=== PATIENT | female | born 1960 | race Caucasian/White ===

== ENCOUNTER → 2017-02-05 | Outpatient (CLI) | payer BC, OTHER | LOC: RAD 15:01 | PROVIDERS: ATTEND Obstetrics & Gynecology | DX: Z12.31 Encounter for screening mammogram for malignant neoplasm of breast (principal) | CPT/HCPCS: 77067 ==

== ENCOUNTER 2017-02-16 05:46 | Outpatient (CLI) | payer BC, OTHER ==
[~2017-02-16] VITALS: Ht 170.2 cm; Wt 71.7 kg
[2017-02-16] MEDS ORDERED: LOVA20TA2 PO (10:57)
== END 2017-02-16 11:01 ==
LOC: PREOP 05:46
PROVIDERS: ATTEND Internal Medicine
DX: Z01.818 Encounter for other preprocedural examination (principal); Z12.11 Encounter for screening for malignant neoplasm of colon

== ENCOUNTER 2017-02-23 07:27 | Day surgery (SDC) | payer BC, OTHER ==
[~2017-02-23] VITALS: Ht 170.2 cm; Wt 71.7 kg
[~2017-02-23 07:27] MED LIST: LOVA20TA2 PO
[2017-02-23] MEDS ORDERED: 1/2 NS IV SOLUTION 1,000 ML IV ONE (07:33)
[2017-02-23] MEDS ORDERED: 1/2 NS IV SOLUTION 1,000 ML IV STA (07:35)
--- NOTE | 2017-02-23 07:40 | Pre-Op Note & Conscious Sedat ---
Pre-Operative Progress Note H&P Reviewed The H&P was reviewed, patient examined and no changes noted. Date H&P Reviewed: Feb 23, 2017 Time H&P Reviewed: 07:39 Conscious Sedation Pre-Proced ASA Class: 2 Airway Mallampati Classification: (asa'[place] appropriate class) I. II. III, IV Lungs Heart ASA score ASA 1: a normal healthy patient ASA 2: a patient with a mild systemic disease (mid diabetes, controlled hypertension, obesity ASA 3: a patient with a severe systemic disease that limits activity (angina , COPD, prior Myocardial infarction) ASA 4: a patient with an incapacitating disease that is a constant threat to life (CHF, renal failure) ASA 5: a moribund patient not expected to survive 24 hrs. (ruptured aneurysm) ASA 6: a declared brain patient whose organs are being harvested. For emergent operations, add the letter E after the classification Grade 2 Sedation Plan: Analgesia, Amnesia, Plan communicated to team members, Discussed options with patient/fam, Discussed risks with patient/fam Note The patient is an appropriate candidate to undergo the planned procedure, sedation, and anesthesia. The patient immediately re-assessed prior to indication. MADELINE BOLES MD Feb 23, 2017 07:40
[2017-02-23] MEDS ORDERED: LIDOCAINE JELLY 2% (XYLOCAINE) 5 ML TUBE MM PRN (07:45)
[2017-02-23 07:55] VITALS: BP 117/57
[2017-02-23] MEDS ORDERED: fentaNYL INJECTION 100 MCG/2 ML AMP ONE (08:17)
[2017-02-23] MEDS ORDERED: LIDOCAINE JELLY 2% (XYLOCAINE) 5 ML TUBE ONE (08:17)
[2017-02-23] MEDS ORDERED: MIDAZOLAM 2 MG/2 ML (VERSED) VIAL ONE ×2 (08:17→08:31)
[2017-02-23] MEDS: fentaNYL INJECTION 100 MCG/2 ML AMP IVP PRN ×2 (08:30→08:34)
[2017-02-23] MEDS: MIDAZOLAM 2 MG/2 ML (VERSED) VIAL IVP PRN ×2 (08:31→08:37)
[2017-02-23 09:20] VITALS: BP 105/67
[2017-02-23 09:50] VITALS: BP 110/77
[2017-02-23 10:01] VITALS: BP 110/77
--- NOTE | 2017-02-23 15:03 | OPERATIVE REPORT ---
DATE OF SERVICE: REPORT TITLE: Colonoscopy Summary. INDICATION FOR THE PROCEDURE: Screening colonoscopy. DESCRIPTION OF PROCEDURE: The patient was placed in the left lateral decubitus position. Prior to undergoing colonoscopy, digital rectal evaluation was performed. Anal sphincter tone was normal and the perianal reflex is intact. No abnormalities were noted on digital inspection of the anal canal or distal rectal vault. The colonoscope was then inserted into the rectum under direct visualization advanced to the cecum. The cecum was identified by identification of the ileocecal valve and cecal strap. Photographic documentation was obtained. Careful inspection was made as the colonoscope was withdrawn. The patient tolerated the procedure well. FINDINGS: There are no evidence for internal or external hemorrhoids. The rectum was unremarkable. Present in the distal sigmoid colon was a diminutive polyp that was with hyperplastic features. Similar polyp was noted in the proximal sigmoid colon. It too was biopsied and ablated with no subsequent blood loss. Several small sigmoid diverticulum were present without evidence for diverticulitis. The descending colon, splenic flexure, transverse colon, ascending colon and cecum were unremarkable. ASSESSMENT: Diminutive polyps were removed from the sigmoid colon via hot forceps. Both has hyperplastic features. Mild diverticular disease confined to the sigmoid colon was present as well. No other abnormalities were noted on today's procedure. As long as there are no surprises on histopathology report, would advocate consideration for repeat screening colonoscopy in 10 years. The patient is not aware of any family history for colon cancer. Job ID: [id number] DocumentID: [id number] Dictated Date: 02/23/2017 11:47:09 Tray Delivery Aide Date: 02/23/2017 15:02:16 Dictated By: MADELINE BOLES MD MTDD
--- NOTE | 2017-03-01 10:59 | HISTORY AND PHYSICAL ---
COLONOSCOPY HISTORY AND PHYSICAL HISTORY OF PRESENT ILLNESS: The patient is a 56-year-old white female referred by Dr. Brower for her first screening colonoscopy. She reports that out of 8 siblings, she knows of 2 that have had colon polyps. Her sister had several polyps removed on a colonoscopy around the age 52 and her brother had some polyps removed in his late 40s. She is not aware of any family history for colon cancer or inflammatory bowel disease. She denies bright red blood per rectum, melena, abdominal pain or bowel habit change. PAST MEDICAL HISTORY: Significant for hyperlipidemia with no known history of vascular disease. PAST SURGICAL HISTORY: Distant past history of tonsillectomy. 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 She has no past smoking history and rare alcohol intake. She is 2, para 2. PHYSICAL EXAMINATION: GENERAL: Reveals a well-kempt articulate white female in no acute distress. VITAL SIGNS: Blood pressure 130/80. CHEST: Clear. CARDIOVASCULAR: Reveals regular rate and rhythm without murmur, S3 or S4. HEENT: Oral cavity was unremarkable. Pharynx reveals no evidence for exudate or erythema. She is a Mallampati class II configuration. ABDOMEN: Soft, supple without mass, organomegaly or tenderness. Bowel sounds are positive. No bruits are noted. EXTREMITIES: Reveal no cyanosis, clubbing or edema. ASSESSMENT/PLAN: The patient is set up for screening colonoscopy on 02/23/2017. Prep instructions with Suprep were given and questions were answered. I thank you for the referral of this pleasant lady. Job ID: [id number] DocumentID: [id number] Dictated Date: 02/14/2017 19:48:39 Client Delivery Specialist Date: 02/14/2017 21:35:16 Dictated By: MADELINE BOLES MD <Dictated by MADELINE BOLES MD> <Electronically signed by MADELINE BOLES MD> 02/16/17 [id number]
== END 2017-02-23 10:00 | disposition home or self-care (01) ==
LOC: ENDO 07:27
PROVIDERS: ATTEND Internal Medicine
DX: Z12.11 Encounter for screening for malignant neoplasm of colon (principal); K63.5 Polyp of colon; K57.30 Diverticulosis of large intestine without perforation or abscess without bleeding; E78.5 Hyperlipidemia, unspecified; Z83.71 Family history of colonic polyps

== ENCOUNTER → 2018-03-20 | Outpatient (CLI) | payer BC, OTHER ==
--- NOTE | 2018-03-20 10:40 | Diagnostic Imaging Report ---
Indication: Routine screening. Comparison is made with prior mammogram from 02/05/2017 and 03/22/2015. 2-D and 3-D bilateral screening mammography was performed with CAD. Both breasts are heterogeneously dense, limiting the sensitivity of mammography. No mass or malignant appearing microcalcifications are seen. The axillae are unremarkable. Impression: BI-RADS category one No mammographic features suspicious for malignancy are identified. Dictated by: Dictated on workstation # [id number]
== END ==
LOC: RAD 07:50
PROVIDERS: ATTEND Obstetrics & Gynecology
DX: Z12.31 Encounter for screening mammogram for malignant neoplasm of breast (principal)
CPT/HCPCS: 77067

== ENCOUNTER → 2019-03-24 | Outpatient (CLI) | payer BC, OTHER ==
--- NOTE | 2019-03-25 08:29 | Diagnostic Imaging Report ---
INDICATION: Screening The current study was also evaluated with a Computer Aided Detection (CAD) system. 3-D Tomographic imaging was also performed. Comparison made with prior examination 03/20/2018, 02/05/2017 and 03/22/2015. FINDINGS: There are scattered fibroglandular densities bilaterally. Few benign type calcifications. There is no dominant mass, spiculated lesion or suspicious calcification identified. Skin, nipples and axilla are unremarkable. IMPRESSION: Category 2 benign. ACR BI-RADS Category 2: Benign findings. Result letter will be mailed to the patient. Note: At least 10% of breast cancer is not imaged by mammography. Dictated by: Dictated on workstation # [id number]
== END ==
LOC: RAD 15:05
PROVIDERS: ATTEND Obstetrics & Gynecology
DX: Z12.31 Encounter for screening mammogram for malignant neoplasm of breast (principal)
CPT/HCPCS: 77067

== ENCOUNTER → 2021-01-11 | Outpatient (CLI) | payer OTHER ==
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
== END ==
LOC: RAD 07:33
PROVIDERS: ATTEND Internal Medicine
DX: S20.211A Contusion of right front wall of thorax, initial encounter (principal); V19.9XXA Pedal cyclist (driver) (passenger) injured in unspecified traffic accident, initial encounter
CPT/HCPCS: 71101

== ENCOUNTER → 2021-02-08 | Outpatient (CLI) | payer OTHER ==
--- NOTE | 2021-02-08 12:30 | Diagnostic Imaging Report ---
Indication: Routine screening. Comparison is made with prior mammogram 03/24/2019 and 03/20/2018. 2-D and 3-D bilateral screening mammography was performed with CAD. Both breasts are heterogeneously dense, limiting the sensitivity of mammography. The parenchymal pattern is stable. No mass or malignant-appearing microcalcifications are seen. Axillae are unremarkable. IMPRESSION: BI-RADS Category 1 No mammographic features suspicious for malignancy are identified. ACR BI-RADS Category 1: Negative. Result letter will be mailed to the patient. Note: At least 10% of breast cancer is not imaged by mammography. Dictated by: Dictated on workstation # [id number]
== END ==
LOC: RAD 07:24
PROVIDERS: ATTEND Internal Medicine
DX: Z12.31 Encounter for screening mammogram for malignant neoplasm of breast (principal)
CPT/HCPCS: 77063; 77067

== ENCOUNTER → 2022-02-10 | Outpatient (CLI) | payer OTHER ==
--- NOTE | 2022-02-10 14:45 | Diagnostic Imaging Report ---
INDICATION: Routine screening. Comparison is made with prior mammograms from 02/08/2021 and 03/24/2019. 2-D and 3-D bilateral screening mammography was performed with CAD. Both breasts are heterogeneously dense, limiting the sensitivity of mammography. A circumscribed density has developed in the central left breast best seen on the CC view. This is not seen on prior study and additional views are recommended. No definite correlate is identified on the MLO view. Right breast is unremarkable. No malignant-appearing microcalcifications are seen. Axillae are unremarkable. IMPRESSION: Left breast density. Additional views are recommended for further evaluation. BI-RADS 0. ACR BI-RADS Category 0: Incomplete. (Needs additional imaging evaluation). Result letter will be mailed to the patient. Note: At least 10% of breast cancer is not imaged by mammography. Dictated by: Dictated on workstation # [id number]
== END ==
LOC: RAD 10:15
PROVIDERS: ATTEND Nurse Practitioner Family
DX: Z12.31 Encounter for screening mammogram for malignant neoplasm of breast (principal)
CPT/HCPCS: 77063; 77067

== ENCOUNTER → 2022-02-23 | Outpatient (CLI) | payer OTHER ==
--- NOTE | 2022-02-23 10:16 | Diagnostic Imaging Report ---
Indication: Left breast density. Patient presents for additional views. Correlation is made with screening study from 02/10/2022. Unilateral left 2-D and 3-D diagnostic mammography was performed. This includes spot compression CC, rolled CC as well as conventional 90 degree lateral views. Additional views show a persistent nodular density in the central left breast approximately 5 cm deep to the nipple. No other abnormalities are seen. IMPRESSION: BI-RADS 0 Persistent density in the central left breast. Further evaluation with ultrasound is recommended and will be performed today. ACR BI-RADS Category 0: Incomplete. (Needs additional imaging evaluation). Result letter will be mailed to the patient. Note: At least 10% of breast cancer is not imaged by mammography. Dictated by: Dictated on workstation # [id number]
--- NOTE | 2022-02-23 12:18 | Diagnostic Imaging Report ---
Indication: Left breast density. Correlation is made with diagnostic mammogram earlier the same day and screening mammogram from 02/10/2022. Sonographic interrogation central left breast does show a simple cyst retroareolar region measuring approximately 5 mm x 4 mm x 5 mm, likely accounting for the mammographic density. No solid masses are detected. IMPRESSION: BI-RADS Category 2 Small simple cyst retroareolar left breast, likely accounting for the mammographic density. Patient may return to routine annual screening mammography. ACR BI-RADS Category 2: Benign findings. Result letter will be mailed to the patient. Note: At least 10% of breast cancer is not imaged by mammography. Dictated by: Dictated on workstation # [id number]
== END ==
LOC: RAD 08:30
PROVIDERS: ATTEND Nurse Practitioner Family
DX: N60.02 Solitary cyst of left breast (principal)
CPT/HCPCS: 76642; 77065; G0279

== ENCOUNTER → 2022-05-17 | Outpatient (CLI) | payer OTHER ==
--- NOTE | 2022-05-17 10:30 | Diagnostic Imaging Report ---
CLINICAL INDICATIONS: Patient states she has years of wear and tear on her back. Patient has low back pain and bilateral leg pain. EXAM: MRI of the lumbar spine performed without IV contrast. Sequences include sagittal T2, sagittal T1, sagittal T2 fat-sat, and axial T2. COMPARISON: None. FINDINGS: There is no acute lumbar spine fracture or dislocation. 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 There are small spurs involving the lumbar spine. There is no significant paraspinal soft tissue abnormality. The visualized portions of the distal thoracic spinal cord, conus medullaris, and cauda equina nerve roots are unremarkable. The conus medullaris tip is seen at the lower L2 vertebral body level. There is a roughly 1.6 cm x 2.6 cm, in greatest axial dimension, Tarlov cysts involving the S2-S3 level centrally and predominantly on the right side. There is a roughly 11 mm perineural cyst in the right S1-S2 region. There is a subtle L5-S1 disk bulge in the left subarticular region. There is no significant central canal or neural foramen narrowing. The remainder of the lumbar spine shows no significant posterior disk bulges or herniations. There is no significant central canal or neural foramen narrowing. Intervertebral disk heights are maintained. IMPRESSION: 1.: There is a minimal sized L5-S1 left subarticular disk bulge with no significant central canal or neural foramen narrowing. 2: There are small anterior spurs throughout the lumbar spine. Otherwise, there is no significant lumbar spine degenerative disease. 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 Dictated by: Dictated on workstation # [id number]
== END ==
LOC: RAD 09:30
PROVIDERS: ATTEND Internal Medicine
DX: M46.06 Spinal enthesopathy, lumbar region (principal); G96.191 Perineural cyst
CPT/HCPCS: 72148